=== PATIENT | female | born 1975 | race Caucasian/White ===

== ENCOUNTER 2018-04-16 06:22 | Day surgery (SDC) | payer BC ==
[2018-04-16] MEDS ORDERED: FENTAnyl 50 MCG/ML VIAL (07:58)
[2018-04-16] MEDS ORDERED: PROPOFOL 40 ML (07:58)
[2018-04-16] MEDS ORDERED: LIDOCAINE 100 MG SYRINGE (07:58)
== END 2018-04-16 14:54 | disposition home or self-care (01) ==
LOC: GIL 06:22
DX: R19.4 Change in bowel habit (principal); K29.50 Unspecified chronic gastritis without bleeding; K64.8 Other hemorrhoids; I10 Essential (primary) hypertension; E11.9 Type 2 diabetes mellitus without complications
CPT/HCPCS: 43239; 84703; 88305; 88312